=== PATIENT | female | born 1960 | race Caucasian/White ===

== ENCOUNTER → 2017-09-19 | Outpatient (CLI) | payer OTHER ==
[~2017-09-19] MED LIST: ALBU8.5H5 INH; FLUT1DIS INH; LEVO50CA2 PO; LISI5TAB PO; METF-162 PO; MONT10TA9 PO
== END | disposition home or self-care (01) ==
LOC: CFH 07:16
PROVIDERS: ATTEND Physician Assistant
DX: Z12.31 Encounter for screening mammogram for malignant neoplasm of breast (principal)
CPT/HCPCS: G0202

== ENCOUNTER 2018-11-24 07:06 | Outpatient (CLI) | payer OTHER | END 2018-11-24 23:59 | disposition home or self-care (01) | LOC: CFH 07:06 | PROVIDERS: ATTEND Family Medicine | DX: Z12.31 Encounter for screening mammogram for malignant neoplasm of breast (principal) | CPT/HCPCS: 77067 ==

== ENCOUNTER → 2019-12-07 | Outpatient (CLI) | payer OTHER ==
[~2019-12-07] MED LIST changes: +MONT10TA11 PO; -MONT10TA9 PO
== END | disposition home or self-care (01) ==
LOC: CFH 06:56
PROVIDERS: ATTEND Family Medicine
DX: Z12.31 Encounter for screening mammogram for malignant neoplasm of breast (principal)
CPT/HCPCS: 77067

== ENCOUNTER → 2021-01-02 | Outpatient (CLI) | payer OTHER ==
[~2021-01-02] MED LIST changes: -MONT10TA11 PO; +MONT10TA17 PO
== END | disposition home or self-care (01) ==
LOC: CFH 09:43
PROVIDERS: ATTEND Registered Nurse
DX: Z12.31 Encounter for screening mammogram for malignant neoplasm of breast (principal)
CPT/HCPCS: 77067

== ENCOUNTER 2021-03-07 09:43 | Inpatient (IN) | payer OTHER ==
[~2021-03-07] VITALS: Ht 162.6 cm; Wt 98.3 kg
--- NOTE | 2021-03-07 09:54 | NUR ---
[facility] 363 in triage.
[2021-03-07] MEDS ORDERED: INSULIN REGULAR 100 UNITS/ML, 3ML VIAL IVPush ONE (10:00)
[2021-03-07] MEDS ORDERED: SODIUM CHLORIDE 0.9% 1,000ML IVBOLUS ONE ×2 (10:00→11:30)
[2021-03-07] MEDS ORDERED: INSULIN SINGLE DOSE, ER ONE (10:21)
[2021-03-07] MEDS ORDERED: ONDANSETRON 2MG/ML, 2ML ONE (10:21)
[2021-03-07 10:27] LABS: BASOPHILS % (AUTO) 1 % (0-1); EOSINOPHILS % (AUTO) 0 % (1-7); LYMPHOCYTES % (AUTO) 4 % (22-44); MEAN CORPUSCULAR HEMOGLOBIN 32.6 pg (27.0-34.8); MEAN CORPUSCULAR HGB CONC 32.5 g/dL (32.4-35.8); MEAN PLATELET VOLUME 10.1 fL (7.4-10.4); MONOCYTES % (AUTO) 3 % (2-9); NEUTROPHILS % (AUTO) 91 % (42-75); PLATELET COUNT 266 x10^3/uL (130-400); RED BLOOD COUNT 4.62 x10^6/uL (3.82-5.3); RED CELL DISTRIBUTION WIDTH 14.2 % (9.6-15.2)
--- NOTE | 2021-03-07 10:33 | NUR ---
PT CAME IN CO "HIGH BLOOD SUGAR". SHE JUST HAD HER INSULIN PUMP INSTALLED 2 WEEKS AGO AND WENT TO [place] LAST WEEK AND FORGET TO BRING EXTRA INSULIN AND SINCE SHE HASNT BEEN ABLE TO GET HER SUGARS UNDER CONTROL. PT RESTING IN [facility]. EKG COMPLETE. MEDICATED FOR NAUSEA. CONNECTED TO MONITORING EQUIPMENT
[2021-03-07 10:34] LABS: FIO2 ROOM AIR %; PH, VENOUS 7.098 pH (7.320-7.420)
[2021-03-07] MEDS ORDERED: ONDANSETRON 2MG/ML, 2ML IVPush ONE (11:00)
[2021-03-07 11:06] LABS: ALBUMIN 4.3 g/dL (3.4-5.0); ANION GAP 24 mmol/L (5-15); CALCIUM 9.9 mg/dL (8.5-10.1); CHLORIDE 105 mmol/L (98-107)
[2021-03-07 11:09] LABS: ALANINE AMINOTRANSFERASE 31 U/L (12-78); CREATININE 1.29 mg/dL (0.55-1.02)
[2021-03-07 11:11] LABS: ALKALINE PHOSPHATASE 63 U/L (45-117); BILIRUBIN,TOTAL 0.6 mg/dL (0.2-1.0); TOTAL PROTEIN 7.7 g/dL (6.4-8.2)
[2021-03-07 11:19] LABS: ACETONE, SERUM Large (80mg/dL) (Negative)
--- NOTE | 2021-03-07 11:19 | NUR ---
TASK RN: IV FLUIDS CONTINUE TO INFUSE NOTED ON NOV. PT ADDITIONALLY MEDICATED WITH REGULAR INSULIN IV NOTED ON MAR
[2021-03-07] MEDS ORDERED: ENALAPRILAT 1.25 MG/ML, 2ML IVPush PRN (11:30)
[2021-03-07] MEDS ORDERED: SODIUM CHLORIDE 0.9% 1,000 ML IV SCH (11:30)
[2021-03-07] MEDS ORDERED: ONDANSETRON 2MG/ML, 2ML IV PRN (11:30)
[2021-03-07] MEDS ORDERED: LACTULOSE 10 GM/15 ML UDC PO PRN (11:30)
[2021-03-07] MEDS ORDERED: LABETALOL 5MG/ML, 20ML IVPush PRN (11:30)
[2021-03-07] MEDS ORDERED: ALBUTEROL HFA 90 MCG/SPRAY INH SCH (11:30)
[2021-03-07] MEDS ORDERED: REGULAR INSULIN 100 UNITS in SODIUM CHLORIDE 0.9% 99 ML IV PRN (11:30)
[2021-03-07] MEDS ORDERED: DOCUSATE 100 MG CAPSULE PO PRN (11:30)
[2021-03-07] MEDS ORDERED: POLYETHYLENE GLYCOL 17 GM PACKET PO PRN (11:30)
--- NOTE | 2021-03-07 12:40 | NUR ---
INSULIN DRIP STARTED PER PROTOCOL. PT RESTING IN [facility]. VSS
[2021-03-07 14:13] VITALS: BP 127/64
[2021-03-07] MEDS ORDERED: ENOXAPARIN 40 MG/0.4 ML SQ SCH (14:30)
[2021-03-07] MEDS ORDERED: EMPA1TAB7 PO (14:37)
[2021-03-07] MEDS ORDERED: LEVO50TA5 PO (14:37)
[2021-03-07] MEDS ORDERED: LEVO75TA5 PO (14:37)
[2021-03-07 14:41] VITALS: BP 127/64
[2021-03-07 14:45] LABS: ANION GAP 19 mmol/L (5-15); CALCIUM 8.7 mg/dL (8.5-10.1); CHLORIDE 111 mmol/L (98-107); CREATININE 1.21 mg/dL (0.55-1.02)
[2021-03-07] MEDS: D5%-0.45NACL+KCL 20MEQ 1,000 ML IV SCH ×2 (16:07→16:46)
[2021-03-07 16:16] LABS: MICROSCOPIC AUTO
[2021-03-07 18:36] LABS: ANION GAP 13 mmol/L (5-15); CALCIUM 8.4 mg/dL (8.5-10.1); CHLORIDE 112 mmol/L (98-107); CREATININE 1.14 mg/dL (0.55-1.02)
[2021-03-07] MEDS: ACETAMINOPHEN 325 MG TABLET PO PRN (19:43)
[2021-03-07] MEDS ORDERED: (Fluticasone/Salmeterol** (Advair 100-50 Diskus**) 1 PUFF) INH SCH (21:00)
[2021-03-07 22:34] LABS: ANION GAP 11 mmol/L (5-15); CALCIUM 8.3 mg/dL (8.5-10.1); CHLORIDE 112 mmol/L (98-107); CREATININE 1.17 mg/dL (0.55-1.02)
[2021-03-08] MEDS: D5%-0.45NACL+KCL 20MEQ 1,000 ML IV SCH (00:28)
[2021-03-08] MEDS: ACETAMINOPHEN 325 MG TABLET PO PRN (02:30)
[2021-03-08 02:40] LABS: ANION GAP 9 mmol/L (5-15); CALCIUM 8.2 mg/dL (8.5-10.1); CHLORIDE 113 mmol/L (98-107); CREATININE 1.06 mg/dL (0.55-1.02)
[2021-03-08 06:27] LABS: ANION GAP 8 mmol/L (5-15); CALCIUM 8.5 mg/dL (8.5-10.1); CHLORIDE 116 mmol/L (98-107); CREATININE 1.04 mg/dL (0.55-1.02)
[2021-03-08] MEDS ORDERED: LEVOTHYROXINE 50 MCG TABLET PO SCH (09:00)
[2021-03-08] MEDS ORDERED: LISINOPRIL 5 MG TABLET PO SCH (09:00)
[2021-03-08] MEDS ORDERED: MONTELUKAST 10 MG TABLET PO SCH (09:00)
== END 2021-03-08 13:20 | disposition home or self-care (01) | DRG 637 ==
LOC: ED 10:20 → EDIP 11:16 → CCU 13:50 → DCLOUNGE 03-08 13:13
PROVIDERS: ADMIT Internal Medicine; ATTEND Internal Medicine
DX: E11.10 Type 2 diabetes mellitus with ketoacidosis without coma (principal); N17.0 Acute kidney failure with tubular necrosis; D75.89 Other specified diseases of blood and blood-forming organs; E03.9 Hypothyroidism, unspecified; I10 Essential (primary) hypertension; J45.909 Unspecified asthma, uncomplicated; Z79.4 Long term (current) use of insulin; Z80.1 Family history of malignant neoplasm of trachea, bronchus and lung; Z90.49 Acquired absence of other specified parts of digestive tract; Z96.41 Presence of insulin pump (external) (internal)
CPT/HCPCS: 36415; 71045; 80048; 80053; 81001; 82010; 82803; 82962; 83036; 83690; 83735; 84100; 84443; 85025; 87040; 87081; 93005; 99285; G0378; J1650; J1815; J2405; J3480; J7030